=== PATIENT | male | born 1960 | race Caucasian/White ===

== ENCOUNTER 2023-11-09 06:33 | Day surgery (SDC) | payer OTHER, SELFPAY ==
[2023-11-02 09:46] VITALS: BMI 32.5
[2023-11-02 10:44] LABS: INR 0.95; PT 12.6 Sec (11.4-14.6)
[2023-11-02 10:45] LABS: APTT 28.7 Sec (23.4-35.0)
[2023-11-02 10:46] LABS: Urine Albumin Trace (Neg - Trace); Urine Bilirubin 1+ (Negative); Urine Character Clear (Clear); Urine Color Yellow; Urine Glucose Negative (Negative); Urine Ketone Negative (Negative); Urine Leukocyte Negative (Negative); Urine Nitrite Negative (Negative); Urine Occult Blood Negative (Negative); Urine Urobilinogen Negative (Neg - 1+)
[2023-11-02 11:13] LABS: Hematocrit 44.2 % (39.0-52.0); Hemoglobin 15.4 g/dL (13.0-18.0); Mean Corp Hgb Conc. 34.8 g/dL (33.0-37.0); Mean Corpuscular Hgb 29.3 pg (27.0-31.0); Mean Corpuscular Volume 84.2 fL (80.0-94.0); Mean Platelet Volume 10.7 fL (7.4-10.4); Platelet Count 242 10^3/uL (130-400); Red Blood Cell Count 5.25 10^6/uL (4.70-6.10); Red Cell Dist. Width 12.8 % (11.5-14.5)
[2023-11-02 11:20] LABS: Blood Urea Nitrogen 14 mg/dl (9-20); Calcium 9.6 mg/dl (8.4-10.2); Carbon Dioxide 24 mmol/L (22-30); Chloride 102 mmol/L (98-107); Estimated Creatinine Clearance 81 ml/min; Glucose 105 mg/dl (70-99); Potassium 4.5 mmol/L (3.5-5.1); Sodium 136 mmol/L (135-145); eGFR > 60.00
[2023-11-09] VITALS (11 sets, daily range): BP systolic 111–147; BP diastolic 73–92; BMI 32.5
[2023-11-09] MEDS: NORMOSOL-R/PLASMALYTE-A 1000 IV (07:25)
[2023-11-09 07:39] LABS: Glucose - Point of Care 103 mg/dl (70-99)
[2023-11-09] MEDS: CYSVIEW KIT 100 MG INTRAVES (08:01)
== END 2023-11-09 11:42 | disposition home or self-care (01) ==
LOC: SDS 06:33
PROVIDERS: ATTENDING PHYSICIAN Specialist; FAMILY PHYSICIAN Internal Medicine; OTHER PHYSICIAN Internal Medicine Cardiovascular Disease
DX: C67.9 Malignant neoplasm of bladder, unspecified (principal); N40.0 Benign prostatic hyperplasia without lower urinary tract symptoms
CPT/HCPCS: 52234; C9738; 88307; 36415; 80048; 81003; 82962; 85027; 85610; 85730; A9589

== ENCOUNTER 2024-08-09 06:14 | Day surgery (SDC) | payer OTHER, SELFPAY ==
[2024-08-09 10:50] LABS: Glucose - Point of Care 93 mg/dl (70-99)
== END 2024-08-09 12:43 | disposition home or self-care (01) ==
LOC: GI 06:14
PROVIDERS: ATTENDING PHYSICIAN Specialist
DX: Z12.11 Encounter for screening for malignant neoplasm of colon (principal); K57.30 Diverticulosis of large intestine without perforation or abscess without bleeding; R12 Heartburn; K22.89 Other specified disease of esophagus; K26.9 Duodenal ulcer, unspecified as acute or chronic, without hemorrhage or perforation; K31.89 Other diseases of stomach and duodenum; D12.4 Benign neoplasm of descending colon; D12.8 Benign neoplasm of rectum; K63.5 Polyp of colon; K62.1 Rectal polyp; K29.50 Unspecified chronic gastritis without bleeding; K26.3 Acute duodenal ulcer without hemorrhage or perforation
CPT/HCPCS: 45385; 45380; 43239; 88305; 82962; 88342

== ENCOUNTER → 2024-12-12 06:22 | Day surgery (SDC) | payer OTHER, SELFPAY ==
[2024-12-12 10:08] LABS: Glucose - Point of Care 87 mg/dl (70-99)
== END ==
LOC: GI 06:22
PROVIDERS: ATTENDING PHYSICIAN Specialist
DX: Z87.11 Personal history of peptic ulcer disease (principal)
CPT/HCPCS: 43235; 82962